=== PATIENT | male | born 2000 | race Caucasian/White ===

== ENCOUNTER 2020-09-01 22:23 | Emergency (ER) | payer OTHER ==
[~2020-09-01] VITALS: Ht 167.6 cm; Wt 100.0 kg
[2020-09-01] MEDS ORDERED: LIDOCAINE HCL/PF 1% 10 MG/ML 5ML VIAL IJ ONE ×2 (23:00→23:45)
[2020-09-01] MEDS ORDERED: IBUPROFEN 600MG TABLET PO ONE (23:00)
[2020-09-01] MEDS ORDERED: BACITRACIN ZINC OINT UDPKT TOP ONE (23:00)
[2020-09-01 23:47] VITALS: BP 115/66
[2020-09-02] MEDS ORDERED: IBUP-2029 PO (00:12)
== END 2020-09-02 00:36 | disposition home or self-care (01) ==
LOC: ER 22:23
DX: S61.012A Laceration without foreign body of left thumb without damage to nail, initial encounter (principal); J45.909 Unspecified asthma, uncomplicated; W26.0XXA Contact with knife, initial encounter; Y93.89 Activity, other specified; Y92.512 Supermarket, store or market as the place of occurrence of the external cause; Y99.8 Other external cause status
CPT/HCPCS: 12002; 99283; J3490